=== PATIENT | male | born 1990 | race African-American/Black ===

== ENCOUNTER 2018-03-06 20:06 | Emergency (ER) | payer SELFPAY, OTHER ==
[2018-03-06] MEDS: CEFTRIAXONE 250 MG INJ IM (23:07)
[2018-03-06] MEDS: AZITHROMYCIN 250 MG TAB PO (23:08)
[2018-03-06] MEDS: IBUPROFEN 800 MG TAB PO (23:08)
== END 2018-03-06 23:34 | disposition home or self-care (01) ==
LOC: FTE 23:34
DX: J02.0 Streptococcal pharyngitis (principal); Z20.2 Contact with and (suspected) exposure to infections with a predominantly sexual mode of transmission
CPT/HCPCS: 96372; 99284-25